=== PATIENT | female | born 1960 ===

== ENCOUNTER 2024-07-23 06:21 | Day surgery (SDC) | payer OTHER ==
[2024-07-17 07:31] VITALS: BP 130/70
[2024-07-17 12:29] VITALS: BP 130/70
[~2024-07-23] VITALS: Ht 149.9 cm; Wt 67.6 kg
[~2024-07-23 06:21] MED LIST: HYZAAR 50-12.51 EACH PO; MILLIPRED5 MG
[2024-07-23] MEDS ORDERED: CLINDAMYCIN PHOSPHATE 150 MG/ML (900mg) ONE (08:44)
[2024-07-23] MEDS ORDERED: CLINDAMYCIN PHOSPHATE 150 MG/ML (900mg) IV ONE (09:45)
[2024-07-23] MEDS ORDERED: ONDANSETRON HCL 2 MG/ML VIAL ONE (10:27)
[2024-07-23] MEDS ORDERED: ONDANSETRON HCL 2 MG/ML VIAL IV ONE ×2 (10:35)
[2024-07-23] MEDS ORDERED: MEPERIDINE HCL 25 MG/ML AMPUL IV ONE (10:35)
== END 2024-07-23 11:25 | disposition home or self-care (01) ==
LOC: CIR.AMB 06:21
PROVIDERS: ATTEND Surgery Surgery of the Hand
DX: M65.841 Other synovitis and tenosynovitis, right hand (principal); M67.843 Other specified disorders of tendon, right hand; Z88.0 Allergy status to penicillin; Z88.6 Allergy status to analgesic agent; Z88.2 Allergy status to sulfonamides

== ENCOUNTER 2024-10-22 05:50 | Day surgery (SDC) | payer OTHER ==
[2024-10-16 11:13] VITALS: BP 145/85
[~2024-10-22] VITALS: Ht 149.9 cm; Wt 65.8 kg
[2024-10-22] MEDS ORDERED: POVIDONE-IODINE 118 ML BOTT TOP ONE (07:45)
[2024-10-22] MEDS ORDERED: ISOPROPYL ALCOHOL 30 ML OUNCE TOP ONE (07:45)
[2024-10-22] MEDS ORDERED: BACITRACIN 28.35 GM OINT.TUBE TOP ONE (07:45)
[2024-10-22] MEDS ORDERED: LIDOCAINE HCL 1% 20 ML VIAL IJ ONE (07:45)
[2024-10-22] MEDS ORDERED: CLINDAMYCIN PHOSPHATE 150 MG/ML (900mg) IV ONE (07:45)
[2024-10-22] MEDS ORDERED: BUPIVACAINE HCL/PF 0.25% 30ML VIAL InF ONE (07:45)
== END 2024-10-22 10:30 | disposition home or self-care (01) ==
LOC: CIR.AMB 05:50
PROVIDERS: ATTEND Surgery Surgery of the Hand
DX: M67.844 Other specified disorders of tendon, left hand (principal); M65.842 Other synovitis and tenosynovitis, left hand; Z88.0 Allergy status to penicillin; Z88.6 Allergy status to analgesic agent; Z88.2 Allergy status to sulfonamides; Z88.5 Allergy status to narcotic agent